=== PATIENT | female | born 1970 | race Caucasian/White ===

== ENCOUNTER 2018-09-07 00:01 | Emergency (ER) | payer OTHER ==
[2018-09-07] MEDS ORDERED: Albuterol/Ipratropium 3.0-0.5 MG/3 ML Neb Soln NEB ONE (00:49)
[2018-09-07] MEDS ORDERED: Codeine/Promethazine 10-6.25 MG/5 ML Syrup 5 ML UD Cup PO ONE (00:50)
--- NOTE | 2018-09-07 01:29 | EDM.PDOC ---
ED HPI GENERAL MEDICAL PROBLEM - General Chief Complaint: Respiratory Problem Stated Complaint: cough Time Seen by Provider: 09/07/18 00:44 Source of Information: Reports: Patient History Limitations: Reports: No Limitations - History of Present Illness INITIAL COMMENTS - FREE TEXT/NARRATIVE: The patient presents with a cough and shortness of breath for about a week. She was seen at the walk in clinic on Sunday and they did a flu swab in it was negative. She has a history of asthma and her inhaler has not been helping. She does not have a fever anymore. She has no chest pain. She is not coughing up any phlegm. Onset: Gradual Duration: Week(s): (1) Severity: Moderate Improves with: Reports: None Worsens with: Reports: None Associated Symptoms: Reports: Cough, Shortness of Breath. Denies: Fever/Chills , Headaches, Nausea/Vomiting - Related Data Allergies Allergy/AdvReac Type Severity Reaction Status Date / Time No Known Allergies Allergy Verified 09/07/18 00:17 Home Meds: Home Meds Albuterol [Ventolin 2 MG/5 ML] 2 puff INH BID PRN 09/07/18 [History] Escitalopram [Lexapro] 20 mg PO DAILY 09/07/18 [History] Fluticasone/Salmeterol [Advair 250-50] 1 puff INH BID 09/07/18 [History] Levocetirizine Dihydrochloride [Xyzal] 5 mg PO DAILY 09/07/18 [History] Levothyroxine 200 mcg PO DAILY 09/07/18 [History] buPROPion [Wellbutrin] 150 mg PO DAILY 09/07/18 [History] Past Medical History Respiratory History: Reports: Asthma Psychiatric History: Reports: Depression - Past Surgical History HEENT Surgical History: Reports: Naso-Sinus Surgery Social & Family History - Tobacco Use Smoking Status *Q: Never Smoker - Caffeine Use Caffeine Use: Reports: Soda ED ROS GENERAL - Review of Systems Review Of Systems: See Below Constitutional: Reports: No Symptoms HEENT: Reports: No Symptoms Respiratory: Reports: Shortness of Breath, Cough Cardiovascular: Reports: No Symptoms Endocrine: Reports: No Symptoms GI/Abdominal: Reports: No Symptoms : Reports: No Symptoms Musculoskeletal: Reports: No Symptoms ED EXAM, GENERAL - Physical Exam Exam: See Below Exam Limited By: No Limitations General Appearance: Alert, No Apparent Distress Ears: Normal External Exam Nose: Normal Inspection Head: Atraumatic, Normocephalic Neck: Normal Inspection, Supple, Non-Tender Respiratory/Chest: No Respiratory Distress, Wheezing Cardiovascular: Regular Rate, Rhythm, No Edema, No Murmur GI/Abdominal: Soft, Non-Tender, No Organomegaly, No Mass Back Exam: Normal Inspection Extremities: Normal Inspection Course - Vital Signs Last Recorded V/S: Last Vital Signs Temp 99.4 F 09/07/18 00:08 Pulse 99 09/07/18 00:08 Resp 20 09/07/18 00:08 BP 98/79 09/07/18 00:08 Pulse Ox 96 09/07/18 01:01 - Orders/Labs/Meds Orders: Active Orders 24 hr Category Date Time Status RT Aerosol Therapy [RC] ASDIRECTED Care 09/07/18 00:50 Active CXR [Chest 2V] [CR] Stat Exams 09/07/18 00:49 Taken Meds: Medications Discontinued Medications Generic Name Dose Route Start Last Admin Trade Name Home PRN Reason Stop Dose Admin Albuterol/Ipratropium 3 ml 09/07/18 00:49 09/07/18 01:01 Duoneb 3.0-0.5 Mg/3 Ml NEB 09/07/18 00:50 3 ml ONETIME ONE Administration Promethazine HCl/Codeine 5 ml 09/07/18 00:50 09/07/18 01:12 Phenergan With Codeine PO 09/07/18 00:51 5 ml ONETIME ONE Administration - Re-Assessments/Exams Free Text/Narrative Re-Assessment/Exam: 09/07/18 01:28 I ordered a duoneb, CXR and phenergan with codeine for the cough. Her CXR shows scoliosis but no infiltrates. I feel she has bronchitis. I will get her on a z-sherlyn and some phenergan with codeine for the cough. Departure - Departure Time of Disposition: 01:40 Disposition: Home, Self-Care 01 Condition: Good Clinical Impression: Bronchitis - Discharge Information *PRESCRIPTION DRUG MONITORING PROGRAM REVIEWED*: Not Applicable *COPY OF PRESCRIPTION DRUG MONITORING REPORT IN PATIENT [place]: Not Applicable Referrals: Lenora Ramsay [employer] C[employer]ING MACHINE OPERATOR [Primary Care Provider] - 1 Week Forms: ED Department Discharge Additional Instructions: Take the zithromax 2 pills on day 1 and 1 pill on day 2 through 5. Use your inhaler as needed. Take the phenergan with codeine for a cough every 6 hours. Please return if you are worse. - My Orders Last 24 Hours: My Active Orders 09/07/18 00:49 CXR [Chest 2V] [CR] Stat 09/07/18 00:50 RT Aerosol Therapy [RC] ASDIRECTED - Assessment/Plan Last 24 Hours: My Active Orders 09/07/18 00:49 CXR [Chest 2V] [CR] Stat 09/07/18 00:50 RT Aerosol Therapy [RC] ASDIRECTED
--- NOTE | 2018-09-07 15:10 | CR ---
Chest: Two views of the chest were obtained. Comparison: No prior chest x-ray. Heart size and mediastinum are normal. Lungs are clear. Scoliosis is noted within the spine. Impression: 1. Nothing acute is seen on two-view chest x-ray. Diagnostic code #2
== END 2018-09-07 01:50 | disposition home or self-care (01) ==
LOC: JD.ED 00:01
DX: J40 Bronchitis, not specified as acute or chronic (principal); F32.9 Major depressive disorder, single episode, unspecified; Z79.899 Other long term (current) drug therapy
CPT/HCPCS: 71046; 94640; 99284; A9270; 99283; J7620-GY

== ENCOUNTER 2020-04-14 20:06 | Emergency (ER) | payer OTHER ==
[2020-04-14] MEDS ORDERED: diphenhydrAMINE 50 MG/ML SDV IVPUSH ONE (20:28)
[2020-04-14] MEDS ORDERED: methylPREDNISolone Sodium Succinate 125 MG/2 ML SDV IVPUSH ONE (20:28)
[2020-04-14] MEDS ORDERED: Famotidine 20 MG/2 ML SDV IVPUSH ONE (20:28)
[2020-04-14] MEDS ORDERED: Sodium Chloride 0.9% 1,000 ML IV SCH (20:30)
--- NOTE | 2020-04-14 20:31 | EDM.PDOC ---
ED HPI GENERAL MEDICAL PROBLEM - General Chief Complaint: Allergic Reaction Stated Complaint: ALLERGIC REACTION - HIVES Time Seen by Provider: 04/14/20 20:19 Source of Information: Reports: Patient History Limitations: Reports: No Limitations - History of Present Illness INITIAL COMMENTS - FREE TEXT/NARRATIVE: 49-year-old female presents to the ED with acute onset of allergic reaction symptoms with diffuse facial erythema and pruritus of the scalp and face. Development of hives head and neck. History suggest use of miracle mouthwash starting yesterday for the first time and again tonight about 1900 hrs. with symptom development within the hour. No known allergies to any medications although she is allergic to shellfish and shrimp. Patient started chemotherapy 1 week ago for left breast cancer diagnosed March 06. She is to receive chemotherapy every 3 weeks for 6 consecutive treatments and then plan would be surgical treatment of breast cancer and radiation treatment. She is not sure what medication of chemotherapy she received Onset: Today, Sudden Onset Date: 04/14/20 Onset Time: 19:00 Duration: Minutes:, Getting Worse Location: Reports: Head, Face, Neck, Generalized (Generalized pruritus.) Quality: Reports: Other (Neurolyse pruritus with development of urticaria and erythema of the face neck and scalp.) Severity: Moderate Improves with: Reports: None Worsens with: Reports: None Context: Reports: Other (Started new medication miracle mouthwash yesterday x1 and only tonight x1 at 1800 hrs. with development of symptoms an hour later. Miracle mouthwash is highly suspect as potential cause of allergic reaction. She also started chemotherapy a week ago for left breast cancer which may or may not be playing a role in development of hives and allergic reaction although it is confined primarily to her head neck and face.). Denies: Activity, Exercise, Lifting, Sick Contact, Trauma Associated Symptoms: Denies: Confusion, Chest Pain, Cough, cough w sputum, Diaphoresis, Fever/Chills, Headaches, Loss of Appetite, Malaise, Nausea/Vomiting, Rash, Seizure, Shortness of Breath, Syncope, Weakness, Other Treatments CONTACT CENTER REP: Reports: Other (see below) (Patient took Benadryl 25 mg at 1900 hrs. with no relief of symptoms.) - Related Data Allergies Allergy/AdvReac Type Severity Reaction Status Date / Time shellfish derived Allergy Hives Verified 04/14/20 20:18 shrimp Allergy Hives Verified 04/14/20 20:18 Home Meds: Home Meds Albuterol [Ventolin 2 MG/5 ML] 2 puff INH BID PRN 09/07/18 [History] Escitalopram [Lexapro] 20 mg PO DAILY 09/07/18 [History] Fluticasone/Salmeterol [Advair 250-50] 1 puff INH BID 09/07/18 [History] Levocetirizine Dihydrochloride [Xyzal] 5 mg PO DAILY 09/07/18 [History] Levothyroxine 200 mcg PO DAILY 09/07/18 [History] buPROPion [Wellbutrin] 150 mg PO DAILY 09/07/18 [History] predniSONE [Prednisone] 20 mg PO BID #6 tablet 04/14/20 [Rx] Past Medical History Respiratory History: Reports: Asthma Psychiatric History: Reports: Depression Oncologic (Cancer) History: Reports: Breast (Diagnosed with left breast carcinoma March [id number]. She has just started chemotherapy last week receiving first dose of proposed every 3 weekly chemotherapy for 6 consecutive treatments. This is to be followed by surgical removal of breast and radiotherapy.) - Past Surgical History HEENT Surgical History: Reports: Naso-Sinus Surgery Social & Family History - Tobacco Use Smoking Status *Q: Never Smoker Second Hand Smoke Exposure: No - Caffeine Use Caffeine Use: Reports: Soda - Recreational Drug Use Recreational Drug Use: No - Living Situation & Occupation Living situation: Reports: Occupation: Employed ED ROS ALLERGIC REACTION - Review of Systems Review Of Systems: See Below Constitutional: Reports: Weakness, Decreased Appetite (1. Mild decreased appetite since chemotherapy a week ago with development of sores in her mouth.). Denies: Fever, Chills, Malaise, Fatigue HEENT: Reports: Other (Oral ulcers since receiving chemotherapy 1 week ago. Soft palate hurts oropharynx hurts.) Respiratory: Denies: Shortness of Breath, Wheezing, Pleuritic Chest Pain Cardiovascular: Reports: No Symptoms Endocrine: Reports: Fatigue GI/Abdominal: Reports: Diarrhea (Is been having mild diarrhea since chemotherapy on average twice daily. Semi-formed stools no blood) : Reports: No Symptoms Musculoskeletal: Reports: No Symptoms Skin: Reports: Other Neurological: Reports: No Symptoms Psychiatric: Reports: No Symptoms Hematologic/Lymphatic: Reports: No Symptoms Immunologic: Reports: No Symptoms ED EXAM GENERAL NO PERIP PULSE - Physical Exam Exam: See Below Exam Limited By: No Limitations General Appearance: Alert, WD/WN, No Apparent Distress, Other (Obvious significant erythema of the entire face particularly periorally and anterior neck. She feels generalized pruritus particular involving her scalp and feels like her scalp is thickened and edematous as well. No trouble swallowing and phonation is normal. Temperature is 37.2 with a heart rate of 100 respiratory was 20 with sats of 97% on room air. BP was 144/86.) Eye Exam: Bilateral Eye: Normal Inspection (No scleral icterus or blepharal pallor.), PERRL Ears: Other (Ears are erythematous.) Nose: Normal Inspection Throat/Mouth: Other (Patient has diffuse erythema particular of the soft palate but also on the hard palate with a few aphthous ulcers evident. Tongue is perhaps slightly swollen. There is also slight edema of the floor of the mouth under the tongue. The uvula is normal although it is erythematous) Head: Atraumatic, Normocephalic, Other (Diffuse erythema of the face particularly periorally with slight swelling of the lips.) Neck: Supple, Non-Tender, Full Range of Motion, Other (Erythema of the anterior neck skin down to the collarbones bilaterally into the zone 2 bilaterally.) Respiratory/Chest: Lungs Clear, Normal Breath Sounds, No Accessory Muscle Use, Respiratory Distress. No: Rales, Rhonchi, Wheezing Cardiovascular: Normal Peripheral Pulses, Regular Rate, Rhythm, No Edema, No Gallop, No Murmur, No Rub GI/Abdominal: Soft, Non-Tender, No Organomegaly, No Abnormal Bruit, No Mass, Pelvis Stable, Abnormal Bowel Sounds (Bowel sounds are fairly quiescent and off for quadrants.) Back Exam: Normal Inspection, Full Range of Motion Extremities: Normal Inspection, Normal Range of Motion, Non-Tender Neurological: Alert, Oriented, CN II-XII Intact, Normal Cognition Psychiatric: Normal Affect, Normal Mood Skin Exam: Warm, Dry, Intact, Erythema (He was erythema involving the perioral aspect of her face but also her forehead and thickening of the scalp clinically. Generalized urticaria.), Increased Warmth (Facial skin.), Other (Patient has an acneiform rash throughout her mid and upper back.) Course - Vital Signs Last Recorded V/S: Last Vital Signs Temp 37.2 C 04/14/20 20:15 Pulse 100 04/14/20 20:15 Resp 20 04/14/20 20:15 BP 144/86 H 04/14/20 20:15 Pulse Ox 97 04/14/20 20:15 - Orders/Labs/Meds Labs: Laboratory Tests 04/14/20 04/14/20 Range/Units 20:36 20:36 WBC 28.67 H (3.98-10.04) K/mm3 RBC 4.65 (3.98-5.22) M/mm3 Hgb 11.0 L (11.2-15.7) gm/dl Hct 36.2 (34.1-44.9) % MCV 77.8 L (79.4-94.8) fl MCH 23.7 L (25.6-32.2) pg MCHC 30.4 L (32.2-35.5) g/dl RDW Std Deviation 48.8 H (36.4-46.3) fL Plt Count 340 (182-369) K/mm3 MPV 9.9 (9.4-12.3) fl Neutrophils % (Manual) 64 H (40-60) % Band Neutrophils % 6 (0-10) % Lymphocytes % (Manual) 23 (20-40) % Atypical Lymphs % 0 % Monocytes % (Manual) 6 (2-10) % Eosinophils % (Manual) 1 (0.7-5.8) % Basophils % (Manual) 0 L (0.1-1.2) Platelet Estimate Adequate Polychromasia 1+ slight Hypochromasia 1+ slight Anisocytosis 1+ slight RBC Morph Comment Abnormal Sodium 138 (136-145) mEq/L Potassium 3.5 (3.5-5.1) mEq/L Chloride 103 (98-107) mEq/L Carbon Dioxide 28 (21-32) mEq/L Anion Gap 10.5 (5-15) BUN 12 (7-18) mg/dL Creatinine 1.2 H (0.55-1.02) mg/dL Est Cr Clr Drug Dosing 50.47 mL/min Estimated GFR (MDRD) 48 (>60) mL/min BUN/Creatinine Ratio 10.0 L (14-18) Glucose 127 H (74-106) mg/dL Calcium 8.7 (8.5-10.1) mg/dL Total Bilirubin 0.2 (0.2-1.0) mg/dL AST 39 H (15-37) U/L ALT 61 H (14-59) U/L Alkaline Phosphatase 119 H (46-116) U/L C-Reactive Protein 4.1 H* (<1.0) mg/dL Total Protein 6.9 (6.4-8.2) g/dl Albumin 3.2 L (3.4-5.0) g/dl Globulin 3.7 gm/dL Albumin/Globulin Ratio 0.9 L (1-2) Meds: Medications Discontinued Medications Generic Name Dose Route Start Last Admin Trade Name Freq PRN Reason Stop Dose Admin Diphenhydramine HCl 50 mg 04/14/20 20:28 04/14/20 20:37 Benadryl IVPUSH 04/14/20 20:29 50 mg ONETIME ONE Administration Famotidine 20 mg 04/14/20 20:28 04/14/20 20:39 Pepcid IVPUSH 04/14/20 20:29 20 mg ONETIME ONE Administration Sodium Chloride 1,000 mls @ 500 mls/hr 04/14/20 20:30 04/14/20 20:36 Normal Saline IV 500 mls/hr ASDIRECTED EFRA Administration Methylprednisolone Sodium Succinate 125 mg 04/14/20 20:28 04/14/20 20:41 Solu-Medrol IVPUSH 04/14/20 20:29 125 mg ONETIME ONE Administration - Radiology Interpretation Free Text/Narrative:: 49-year-old female presents to the ED with an acute allergic reaction primarily involving her face scalp and neck. Development of generalized erythema and generalized pruritus approximately 2000 hrs. She took miracle mouthwash for the second time tonight about 1800 hrs. She had used it once yesterday. Medication is being used for sores in her mouth that have occurred since chemotherapy was started 1 week ago. She has no throat closure symptoms but feels an itch in the back of her throat. She does not feel short of breath. She has no history of asthma. She has a known allergy to shellfish and shrimp. She did take Benadryl 25 mg at 1900 hrs. tonight with no relief of symptoms. And normal saline IV at 500 mils per hour. Routine labs will be collected to see if there is any eosinophilia. Given Pepcid 20 mg IV with Solu-Medrol 125 mg IV and further dose of Benadryl 50 mg IV at this time - Re-Assessments/Exams Free Text/Narrative Re-Assessment/Exam: 04/14/20 21:18 49-year-old female presents to the ED with acute onset of allergic reaction with generalized pruritus marked erythema of the face neck and scalp. She started miracle mouthwash for oral ulcers that developed post chemotherapy 1 week ago. She started miracle mouthwash once yesterday and once tonight about 1800 hrs. with the development of allergic symptoms an hour later. She took 25 mg of Benadryl at home with no symptom relief. Examination reveals slight edema of the floor of her mouth diffuse erythema of the roof of her mouth including the soft palate and posterior oropharynx from chemotherapy induced aphthous ulcers. She has diffuse facial erythema and anterior neck erythema with a few hives evident. Back shows an acneiform type rash. 04/14/20 21:10: Upon review facial erythema is perhaps slightly less erythematous. Patient feels that her pruritus is much improved. Lungs are clear to auscultation percussion floor the mouth edema is now gone. Certainly no worsening of any of her symptoms. Phonation is normal. Waiting her lab results. 04/14/20 21:37 White count is markedly elevated at 28.67 suggesting she may have gotten high-dose dexamethasone or steroids as part of her chemotherapy protocol. Hemoglobin is 11.0 with hematocrit of 36.2. MCV is low at 77.8. Platelet count 340,000. Differential pending. Sodium was 138 with a potassium low normal at 3.5. Chloride 103 with a bicarb of 28. Anion gap is 10.5. BUN is 12 with a creatinine of 1.2. GFR is 48. Glucose 127 with a calcium of 8.7. Bilirubin 0.2 AST slightly elevated at 39 and ALT slightly elevated at 61. Alk phos days is 119. C-reactive protein is mildly elevated at 4.1. Total protein is 6.9 with an albumin fraction of 3.2. Departure - Departure Time of Disposition: 21:37 Disposition: Home, Self-Care 01 Condition: Fair Clinical Impression: Acute allergic reaction Qualifiers: Encounter type: initial encounter Qualified Code(s): T78.40XA - Allergy, unspecified, initial encounter - Discharge Information *PRESCRIPTION DRUG MONITORING PROGRAM REVIEWED*: Not Applicable *COPY OF PRESCRIPTION DRUG MONITORING REPORT IN PATIENT [place]: Not Applicable Prescriptions: predniSONE [Prednisone] 20 mg PO BID #6 tablet Instructions: Allergies, Adult, [id number] Referrals: Lenora Ramsay TREATER [Primary Care Provider] - Forms: ED Department Discharge Additional Instructions: Evaluation in the emergency room tonight in regards to the development of acute allergic reaction to suspect new medication in miracle mouthwash. This medication contains usually for different medications including bupivacaine or lidocaine as a anesthetic which is likely the opiate and causing acute allergic reaction. It usually contains Maalox as an antacid and usually Benadryl as well. Sometimes it contains an antibiotic which needs to be checked. At any rate no further use of this medication is advised. You were treated in the emergency room with intravenous normal saline and given a Solu-Medrol steroid 125 mg IV with Benadryl 50 mg IV and Pepcid 20 mg IV for acute allergic response. Labs done in the ED revealed a elevated white count at 28,000 suggesting likely received high-dose steroids as part of your chemotherapy protocol. No other electrolyte or serious abnormalities identified on liver or kidney function. Suggest use of Benadryl 50 mg every 6 hours if needed for recurrence of itching or's redness or swelling. If symptoms persist overnight then fill prescription for prednisone 20 mg tomorrow morning and take twice daily for the next 3 days to bring allergic reaction under control. Sepsis Event Note (ED) - Evaluation Sepsis Screening Result: No Definite Risk - Focused Exam Vital Signs: Vital Signs Temp Pulse Resp BP Pulse Ox 04/14/20 20:15 37.2 C 100 20 144/86 H 97
== END 2020-04-14 21:49 | disposition home or self-care (01) ==
LOC: JD.ED 20:06
DX: L50.0 Allergic urticaria (principal); J45.909 Unspecified asthma, uncomplicated; F32.9 Major depressive disorder, single episode, unspecified; Z91.013 Allergy to seafood; Z79.899 Other long term (current) drug therapy
CPT/HCPCS: 36415; 80053; 85007; 85027; 86140; 96361; 96374; 96375; 99283; J1200; J2930; J3490; J7030

== ENCOUNTER 2021-01-12 18:39 | Emergency (ER) | payer OTHER ==
--- NOTE | 2021-01-12 19:17 | EDM.PDOC ---
ED HPI GENERAL MEDICAL PROBLEM - General Chief Complaint: Head Injury Stated Complaint: HEAD INJURY DIZZY Time Seen by Provider: 01/12/21 19:06 Source of Information: Reports: Patient, Family (), RN Notes Reviewed History Limitations: Reports: No Limitations - History of Present Illness INITIAL COMMENTS - FREE TEXT/NARRATIVE: Patient is a 50-year-old female who presents to the ER for head injury. States that she was at home, carrying things in her arms, when she missed the last step, and subsequently fell onto her face into the ground. This resulted in a goose egg and abrasion on the patient's right forehead, just above her eyebrow. This is just a superficial abrasion, and no bleeding is apparent. States she is not having any blurred vision or double vision, she did not have any sort of bloody nose, fluids coming from her ears, or any sort of dental trauma. She is not on blood thinners. Patient states she feels slightly woozy, and had a fleeting episode of nausea but did not vomit. She states that she is not having any fevers or chills, cough or shortness of breath, or any sort of vomiting or diarrhea. Again, the patient was not feeling lightheaded or dizzy prior to the injury, she states she literally just missed the step and fell. Patient has a primary care provider that is out of the area, and she is being treated by Dr. Medina for breast cancer. Head Pain Score (Numeric/FACES): 4 - Related Data Allergies Allergy/AdvReac Type Severity Reaction Status Date / Time shellfish derived Allergy Severe Hives Verified 01/12/21 19:08 shrimp Allergy Severe Hives Verified 01/12/21 19:08 strawberry Allergy Severe Hives Verified 01/12/21 19:08 Home Meds: Home Meds Albuterol [Ventolin 2 MG/5 ML] 2 puff INH BID PRN 09/07/18 [History] Fluticasone/Salmeterol [Advair 250-50] 1 puff INH BID 09/07/18 [History] Levocetirizine Dihydrochloride [Xyzal] 5 mg PO DAILY 09/07/18 [History] Levothyroxine 200 mcg PO DAILY 09/07/18 [History] buPROPion [Wellbutrin] 150 mg PO DAILY 09/07/18 [History] Past Medical History Respiratory History: Reports: Asthma Psychiatric History: Reports: Depression Endocrine/Metabolic History: Reports: Obesity/BMI 30+ Oncologic (Cancer) History: Reports: Breast - Past Surgical History HEENT Surgical History: Reports: Naso-Sinus Surgery Female Surgical History: Reports: Tubal Ligation Oncologic Surgical History: Reports: Mastectomy, Other (See Below) Other Oncologic Surgeries/Procedures: Bilat. Mastectomy, [place] Social & Family History - Tobacco Use Tobacco Use Status *Q: Never Tobacco User - Caffeine Use Caffeine Use: Reports: Soda - Recreational Drug Use Recreational Drug Use: No - Living Situation & Occupation Living situation: Reports: Occupation: Employed ED ROS GENERAL - Review of Systems Review Of Systems: Comprehensive ROS is negative, except as noted in HPI. ED EXAM, HEAD INJURY - Physical Exam Exam: See Below Exam Limited By: No Limitations General Appearance: Alert, WD/WN, No Apparent Distress Head: Normocephalic, Facial Abrasions (superficial abrasion to R forehead, just above the mid-lateral eyebrow) Nexus Criteria: No: Posterior, Midline Cervical Tenderness, Evidence of Intoxication, Altered Level of Consciousness, Focal Neurological Deficit, Painful Distraction Injuries Eyes: Bilateral Eye: EOMI, Normal Inspection, PERRL Ears: Normal External Exam, Normal Canal, Hearing Grossly Normal, Normal TMs Nose: Normal Inspection, Normal Mucousa, No Blood Throat/Mouth: Normal Inspection, Normal Lips, Normal Teeth, Normal Gums, Normal Oropharynx, Normal Voice, No Airway Compromise Neck: Non-Tender, Full Range of Motion, Normal Alignment, Normal Inspection Respiratory: No Respiratory Distress, Lungs Clear, Normal Breath Sounds, No Accessory Muscle Use, Chest Non-Tender Cardiovascular: Normal Peripheral Pulses, Regular Rate, Rhythm, No Edema GI/Abdominal Exam: Normal Bowel Sounds, Soft, Non-Tender Extremities: Normal Inspection, Normal Capillary Refill Neurologic: No Motor/Sensory Deficits, Alert, Normal Mood/Affect, Oriented x 3 Skin: Normal Color, Warm/Dry - Tremaine Coma Score Best Eye Response (Tremaine): (4) Open Spontaneously Best Verbal Response (Tremaine): (5) Oriented Best Motor Response (Tremaine): (6) Obeys Commands Tremaine Total: 15 Course - Vital Signs Last Recorded V/S: Last Vital Signs Temp 96.1 F L 01/12/21 19:05 Pulse 78 01/12/21 19:05 Resp 16 06/23/21 19:05 BP 119/69 01/12/21 19:05 Pulse Ox 93 L 01/12/21 19:05 - Re-Assessments/Exams Free Text/Narrative Re-Assessment/Exam: 01/12/21 19:21 Patient presents to the ER for evaluation of her head injury, there is no doubt that she may have suffered a concussion. Patient was given strict return prec autions, she verbalized understanding of this. She has a superficial abrasion to her right forehead, this should heal just fine with minimal interventions. Departure - Departure Time of Disposition: 19:16 Disposition: Home, Self-Care 01 Condition: Good Clinical Impression: Concussion with no loss of consciousness - Discharge Information *PRESCRIPTION DRUG MONITORING PROGRAM REVIEWED*: No *COPY OF PRESCRIPTION DRUG MONITORING REPORT IN PATIENT MAINE: No Instructions: Concussion, Adult, [id number], Facial or Scalp Contusion, [id number] Referrals: Lenora Ramsay C[facility]MAN [Primary Care Provider] - Forms: ED Department Discharge Additional Instructions: You were evaluated in the ED today for your head injury. You have been clinically diagnosed with a concussion. A concussion can affect how the brain works for a while. It may lead to headaches, changes in alertness, or loss of consciousness. Getting better from a concussion takes days to weeks or even months. You may be irritable, have trouble concentrating, or be unable to remember things. You may also have headaches, dizziness, or blurry vision. These problems will likely recover slowly. You may want to get help from family or friends for making important decisions. You may use acetaminophen (Tylenol) 500mg or 600 mg ibuprofen (Advil/Motrin) Q6H for a headache. You DO NOT need to stay in bed. Light activity around the home is okay. But avoid exercise, lifting weights, or other heavy activity. You may want to keep your diet light if you have nausea and vomiting. Drink fluids to stay hydrated. As long as you have symptoms, avoid sports activities, operating machines, being overly active, doing physical labor. Ask your doctor when you can return to your activities. If symptoms DO NOT go away or are not improving after 2 or 3 weeks, talk to your doctor. Call the doctor if you have: -A stiff neck -Fluid and blood leaking from your nose or ears -A hard time waking up or have become more sleepy -A headache that is getting worse, lasts a long time, or is not relieved by [id number] pain relievers -Fever -Vomiting more than 3 times -Problems walking or talking -Changes in speech (slurred, difficult to understand, does not make sense) -Problems thinking straight -Seizures (jerking your arms or legs without control) -Changes in behavior or unusual behavior -Double vision Please return to the ED if your symptoms change or worsen. Sepsis Event Note (ED) - Evaluation Sepsis Screening Result: No Definite Risk - Focused Exam Vital Signs: Vital Signs Temp Pulse Resp BP Pulse Ox 01/12/21 19:05 96.1 F L 78 16 119/69 93 L
== END 2021-01-12 19:42 | disposition home or self-care (01) ==
LOC: JD.ED 18:39
DX: S06.0X0A Concussion without loss of consciousness, initial encounter (principal); S00.81XA Abrasion of other part of head, initial encounter; J45.909 Unspecified asthma, uncomplicated; E66.9 Obesity, unspecified; Z68.30 Body mass index [BMI] 30.0-30.9, adult; Z91.013 Allergy to seafood; Z91.018 Allergy to other foods; Z79.899 Other long term (current) drug therapy; W10.9XXA Fall (on) (from) unspecified stairs and steps, initial encounter; Y92.009 Unspecified place in unspecified non-institutional (private) residence as the place of occurrence of the external cause
CPT/HCPCS: 99283; 99284

== ENCOUNTER 2025-01-06 20:55 | Emergency (ER) | payer OTHER ==
[2025-01-06 23:00] LABS: BASOPHILS PERCENT AUTO 0.4 % (0.0-1.0); EOSINOPHILS ABSOLUTE AUTO 0.7 K/mm3 (0.0-0.4); EOSINOPHILS PERCENT AUTO 6.9 % (0.0-6.0); HEMATOCRIT 42.4 % (37.0-47.0); HEMOGLOBIN 13.3 gm/dl (12.0-16.0); IMMATURE GRAN ABSOLUTE AUTO 0.02 K/mm3 (0.00-0.05); IMMATURE GRAN PERCENT AUTO 0.2 % (0.0-0.4); LYMPHOCYTES ABSOLUTE AUTO 1.9 K/mm3 (1.0-4.8); LYMPHOCYTES PERCENT AUTO 17.6 % (24.0-44.0); MEAN CORPUSCULAR HEMOGLOBIN 26.9 pg (28.0-32.0); MEAN CORPUSCULAR HGB CONC 31.4 g/dl (32.0-36.0); MEAN CORPUSCULAR VOLUME 85.8 fl (83.0-99.0); MEAN PLATELET VOLUME 9.1 fl (9.4-12.3); MONOCYTES ABSOLUTE AUTO 0.8 K/mm3 (0.0-0.8); MONOCYTES PERCENT AUTO 7.6 % (0.0-8.0); NEUTROPHILS ABSOLUTE AUTO 7.2 K/mm3 (1.8-7.7); NEUTROPHILS PERCENT AUTO 67.3 % (41.0-71.0); PLATELET COUNT,PLT 261 K/mm3 (150-400); RED BLOOD CELL COUNT 4.94 M/mm3 (4.10-5.30); WHITE BLOOD CELL COUNT,WBC 10.73 K/mm3 (3.9-11.3)
[2025-01-06 23:21] LABS: A/G RATIO 0.9 (1-2); ALBUMIN 3.4 g/dl (3.4-5.0); ANION GAP 11.1 (5-15); BILIRUBIN TOTAL 0.3 mg/dL (0.2-1.0); BUN/CREATININE RATIO 15.6 (14-18); CALCIUM 9.6 mg/dL (8.5-10.1); CREATININE 0.9 mg/dL (0.55-1.02); EST CRCL DRUG DOSING (CG) 63.55 mL/min; POTASSIUM,K 4.1 mEq/L (3.5-5.1); PROTEIN TOTAL,TP 7.2 g/dl (6.4-8.2)
[2025-01-07 00:44] LABS: CORONAVIRUS COVID-19 NAA NEGATIVE (NEGATIVE); INFLUENZA A NAA NEGATIVE (NEGATIVE); RESPIRATORY SYNCYTIAL VIR NAA NEGATIVE (NEGATIVE)
== END 2025-01-07 02:21 | disposition home or self-care (01) ==
LOC: JD.ED 20:55
DX: J06.9 Acute upper respiratory infection, unspecified (principal); J45.909 Unspecified asthma, uncomplicated; E66.9 Obesity, unspecified; Z88.8 Allergy status to other drugs, medicaments and biological substances; Z91.013 Allergy to seafood; Z91.018 Allergy to other foods; Z79.899 Other long term (current) drug therapy; Z79.890 Hormone replacement therapy; Z68.33 Body mass index [BMI] 33.0-33.9, adult
CPT/HCPCS: 0241U; 36415; 71045; 71045-26; 80053; 85025; 93005; 93010; 99284; 99285